=== PATIENT | male | born 1995 | race Caucasian/White ===

== ENCOUNTER 2020-12-31 10:06 | Emergency (ER) | payer MEDICARE ==
[~2020-12-31 10:06] MED LIST: FLOMAX0.4 MG PO; ONDANSETRON ODT4 MG SL; PERCOCET 5-3251 EACH PO
[2020-12-31] MEDS ORDERED: BLEPH-105 ML EYERT (11:08)
== END 2020-12-31 11:24 | disposition home or self-care (01) ==
LOC: FER 10:06
DX: T15.01XA Foreign body in cornea, right eye, initial encounter (principal)